=== PATIENT | female | born 1955 | race Caucasian/White ===

== ENCOUNTER 2018-08-02 19:26 | Inpatient (IN) | payer OTHER, MEDICAID ==
[~2018-08-02] VITALS: Ht 157.5 cm; Wt 82.9 kg
[~2018-08-02 19:26] MED LIST: ALEN70TA5 PO; GABA300C10 PO; GLIM1TAB2 PO; GLYBURIDE; LOSA50TA7 PO; MECL25TA4 PO; METF100010 PO; METF500T17 PO; OXYC-302 PO; PRAV10TA2 PO; PRAV40TA2 PO; QUET100T4 PO; QUET50TA5 PO
[2018-08-02] MEDS ORDERED: KETOROLAC 30 MG/1 ML ONE (19:55)
[2018-08-02] MEDS ORDERED: DIAZEPAM 5 MG TABLET ONE (19:56)
[2018-08-02] MEDS ORDERED: KETOROLAC 30 MG/1 ML IM ONE (20:00)
[2018-08-02] MEDS ORDERED: DIAZEPAM 5 MG TABLET PO ONE (20:00)
[2018-08-02 20:13] LABS: BASOPHILS # (AUTO) 0.04 x10^3/uL (0-0.1); BASOPHILS % (AUTO) 0 % (0-1); EOSINOPHILS # (AUTO) 0.09 x10^3/uL (0-0.4); EOSINOPHILS % (AUTO) 1 % (1-7); LYMPHOCYTES # (AUTO) 3.35 x10^3/uL (1-3.4); LYMPHOCYTES % (AUTO) 39 % (22-44); MD NO; MEAN CORPUSCULAR HEMOGLOBIN 31.4 pg (27.0-34.8); MEAN CORPUSCULAR HGB CONC 34.5 g/dL (32.4-35.8); MEAN CORPUSCULAR VOLUME 91.1 fL (80-100); MEAN PLATELET VOLUME 8.5 fL (7.4-10.4); MONOCYTES # (AUTO) 0.65 x10^3/uL (0.2-0.8); MONOCYTES % (AUTO) 8 % (2-9); NEUTROPHILS # (AUTO) 4.44 x10^3/uL (1.8-6.8); NEUTROPHILS % (AUTO) 52 % (42-75); PLATELET COUNT 214 x10^3/uL (130-400); RED BLOOD COUNT 4.31 x10^6/uL (3.82-5.3); RED CELL DISTRIBUTION WIDTH 13.5 % (9.6-15.2)
[2018-08-02 20:22] LABS: ALANINE AMINOTRANSFERASE 63 U/L (12-78); ALBUMIN 3.7 g/dL (3.4-5.0); ANION GAP 4 mmol/L (5-15); CALCIUM 9.2 mg/dL (8.5-10.1); CHLORIDE 103 mmol/L (98-107); CREATININE 0.97 mg/dL (0.55-1.02)
[2018-08-02 20:25] LABS: ALKALINE PHOSPHATASE 149 U/L (45-117); BILIRUBIN,TOTAL 0.4 mg/dL (0.2-1.0); TOTAL PROTEIN 7.8 g/dL (6.4-8.2)
[2018-08-02 20:53] LABS: MICROSCOPIC AUTO
[2018-08-02 20:55] LABS: CULTURE INDICATED? YES
[2018-08-02] MEDS ORDERED: HYDROmorphone 1 MG/ML, 1ML IV ONE (22:00)
[2018-08-02] MEDS ORDERED: HYDROmorphone 2 MG/ML, 1ML ONE (22:00)
[2018-08-02] MEDS ORDERED: NS + 20MEQ KCL 1,000 ML IV SCH (22:08)
[2018-08-02] MEDS ORDERED: ALENDRONATE SODIUM 70 MG PO SCH (22:30)
[2018-08-02] MEDS ORDERED: POLYETHYLENE GLYCOL 17 GM PACKET PO PRN (22:30)
[2018-08-02] MEDS ORDERED: DOCUSATE 100 MG CAPSULE PO PRN (22:30)
[2018-08-02] MEDS ORDERED: ONDANSETRON 2MG/ML, 2ML IVPush PRN (22:30)
[2018-08-02] MEDS ORDERED: ACETAMINOPHEN 325 MG TABLET PO PRN (22:30)
[2018-08-02 22:58] VITALS: BP 145/85
[2018-08-02] MEDS ORDERED: MECLIZINE MC SCH (23:00)
[2018-08-02] MEDS ORDERED: ALENDRONATE MC SCH (23:00)
[2018-08-02] MEDS ORDERED: ONDANSETRON 4 MG TABLET ONE (23:33)
[2018-08-02] MEDS: morphine SULFATE 10 MG/ML, 1ML IVPush PRN (23:38)
[2018-08-02] MEDS: QUETIAPINE 100MG TABLET PO SCH (23:39)
[2018-08-02] MEDS: GABAPENTIN 300 MG CAPSULE PO SCH (23:39)
[2018-08-02] MEDS: DEXAMETHASONE 4 MG TABLET PO SCH (23:39)
[2018-08-03] MEDS: ONDANSETRON ODT 4 MG PO PRN (00:01)
[2018-08-03] MEDS: CEFTRIAXONE PMX 1GM/50ML 50 ML IV SCH ×2 (00:02→23:58)
[2018-08-03 01:38] VITALS: BP 127/64
[2018-08-03] MEDS: morphine SULFATE 10 MG/ML, 1ML IVPush PRN (06:58)
[2018-08-03] MEDS ORDERED: ALENDRONATE 70 MG TABLET PO SCH (09:00)
[2018-08-03] MEDS ORDERED: GLIMEPIRIDE 1 MG TABLET PO SCH (09:00)
[2018-08-03 09:06] VITALS: BP 114/74
[2018-08-03] MEDS: DEXAMETHASONE 4 MG TABLET PO SCH ×3 (09:19→21:20)
[2018-08-03] MEDS: LOSARTAN 50MG TABLET PO SCH (09:19)
[2018-08-03] MEDS: GABAPENTIN 300 MG CAPSULE PO SCH ×2 (09:19→21:19)
[2018-08-03] MEDS: SENNA/DOCUSATE TABLET PO SCH (09:25)
[2018-08-03] MEDS: OXYcodone/APAP 5/325MG TABLET PO PRN ×2 (10:14→19:52)
[2018-08-03] MEDS: INSULIN LISPRO 100 UNITS/ML, PEN SQ-INSULIN SCH ×4 (10:15→21:28)
[2018-08-03] MEDS ORDERED: ERGOCALCIFEROL 50,000 UNIT CAPSULE PO SCH (14:00)
[2018-08-03 15:21] VITALS: BP 123/79
[2018-08-03] MEDS: KETOROLAC 30 MG/1 ML IVPush SCH ×2 (15:34→23:10)
[2018-08-03 18:45] VITALS: BP 133/80
[2018-08-03] MEDS ORDERED: MECLIZINE CHEWABLE 25 MG TAB PO PRN (19:00)
[2018-08-03] MEDS: QUETIAPINE 100MG TABLET PO SCH (21:19)
[2018-08-04 01:41] VITALS: BP 134/81
[2018-08-04] MEDS: OXYcodone/APAP 5/325MG TABLET PO PRN ×2 (02:03→20:26)
[2018-08-04] MEDS: KETOROLAC 30 MG/1 ML IVPush SCH ×4 (04:46→22:56)
[2018-08-04] MEDS: DEXAMETHASONE 4 MG TABLET PO SCH ×4 (05:36→20:32)
[2018-08-04 07:10] VITALS: BP_SYST 115; BP_SYST 143; BP_DIAS 71
[2018-08-04] MEDS: GABAPENTIN 300 MG CAPSULE PO SCH ×2 (08:01→20:26)
[2018-08-04] MEDS: LOSARTAN 50MG TABLET PO SCH (08:01)
[2018-08-04] MEDS: SENNA/DOCUSATE TABLET PO SCH (08:01)
[2018-08-04] MEDS: INSULIN LISPRO 100 UNITS/ML, PEN SQ-INSULIN SCH ×4 (08:01→20:32)
[2018-08-04] MEDS: METHOCARBAMOL 500 MG TABLET PO PRN (08:05)
[2018-08-04 14:30] VITALS: BP 111/73
[2018-08-04 19:55] VITALS: BP 133/80
[2018-08-04] MEDS: QUETIAPINE 100MG TABLET PO SCH (20:26)
[2018-08-04] MEDS ORDERED: CEFTRIAXONE 1,000 MG in SODIUM CHLORIDE 0.9% 50 ML IV SCH (23:00)
[2018-08-05 01:54] VITALS: BP 119/73
[2018-08-05] MEDS: KETOROLAC 30 MG/1 ML IVPush SCH ×2 (05:00→09:51)
[2018-08-05] MEDS: DEXAMETHASONE 4 MG TABLET PO SCH (05:01)
[2018-08-05 07:29] VITALS: BP 142/85
[2018-08-05 07:38] LABS: MEAN CORPUSCULAR HEMOGLOBIN 30.8 pg (27.0-34.8); MEAN CORPUSCULAR HGB CONC 33.3 g/dL (32.4-35.8); MEAN CORPUSCULAR VOLUME 92.4 fL (80-100); MEAN PLATELET VOLUME 8.9 fL (7.4-10.4); PLATELET COUNT 227 x10^3/uL (130-400); RED BLOOD COUNT 4.28 x10^6/uL (3.82-5.3); RED CELL DISTRIBUTION WIDTH 13.5 % (9.6-15.2)
[2018-08-05 07:46] LABS: ALBUMIN 3.3 g/dL (3.4-5.0); ANION GAP 6 mmol/L (5-15); CALCIUM 8.4 mg/dL (8.5-10.1); CHLORIDE 107 mmol/L (98-107)
[2018-08-05 07:52] LABS: ALANINE AMINOTRANSFERASE 41 U/L (12-78); ALKALINE PHOSPHATASE 94 U/L (45-117); BILIRUBIN,TOTAL 0.7 mg/dL (0.2-1.0)
[2018-08-05] MEDS: GABAPENTIN 300 MG CAPSULE PO SCH (08:04)
[2018-08-05] MEDS: LOSARTAN 50MG TABLET PO SCH (08:04)
[2018-08-05] MEDS: METHOCARBAMOL 500 MG TABLET PO PRN (08:04)
[2018-08-05] MEDS: SENNA/DOCUSATE TABLET PO SCH (08:04)
[2018-08-05] MEDS: INSULIN LISPRO 100 UNITS/ML, PEN SQ-INSULIN SCH ×2 (08:05→11:47)
[2018-08-05 08:41] LABS: MD YES
[2018-08-05 08:43] LABS: <PLATELET ESTIMATE> ADEQUATE; <PLT MORPHOLOGY> NORMAL PLT MORPH; <RBC MORPHOLOGY> NORMAL; BAND#(MANUAL) 0.21 x10^3/uL; BANDS%(MANUAL) 1 % (0-7); LYMPH#(MANUAL) 2.29 x10^3/uL (1-3.4); LYMPHS% (MANUAL) 11 % (22-44); MONOS#(MANUAL) 0.83 x10^3/uL (0.3-2.7); MONOS% (MANUAL) 4 % (2-9); SEG#(MANUAL) 17.47 x10^3/uL (1.8-6.8); SEGS% (MANUAL) 84 % (42-75)
[2018-08-05] MEDS ORDERED: DEXAMETHASONE 4 MG TABLET PO SCH (09:00)
[2018-08-05] MEDS ORDERED: DEXA4TAB PO (09:40)
[2018-08-05] MEDS ORDERED: METH500T7 PO (09:40)
[2018-08-05] MEDS ORDERED: ERGO500017 PO (09:40)
[2018-08-05] MEDS: ONDANSETRON ODT 4 MG PO PRN (11:46)
== END 2018-08-05 14:35 | disposition home or self-care (01) | DRG 552 ==
LOC: ED 21:17 → SUATTDRO 21:45 → EDIP 22:37 → 3NW 22:38 → DCLOUNGE 08-05 14:24
PROVIDERS: ADMIT Family Medicine; ATTEND Family Medicine
DX: M51.36 Other intervertebral disc degeneration, lumbar region (principal); N39.0 Urinary tract infection, site not specified; M51.24 Other intervertebral disc displacement, thoracic region; M51.26 Other intervertebral disc displacement, lumbar region; Z85.3 Personal history of malignant neoplasm of breast; M46.1 Sacroiliitis, not elsewhere classified; I10 Essential (primary) hypertension; F41.9 Anxiety disorder, unspecified; E78.00 Pure hypercholesterolemia, unspecified; E55.9 Vitamin D deficiency, unspecified; E11.9 Type 2 diabetes mellitus without complications; T38.0X5A Adverse effect of glucocorticoids and synthetic analogues, initial encounter; Z83.3 Family history of diabetes mellitus; Z80.9 Family history of malignant neoplasm, unspecified
CPT/HCPCS: 36415; 72072; 72110; 72146; 72148; 80053; 81001; 82306; 82962; 85025; 87086; 87491; 87591; 93005; 96372; 96374; G0378; J0696; J1170; J1885; J3480; Q0162; J1815; J2270

== ENCOUNTER 2018-08-15 14:47 | Emergency (ER) | payer OTHER, MEDICAID ==
[~2018-08-15] VITALS: Ht 160 cm; Wt 77.3 kg
[~2018-08-15 14:47] MED LIST changes: +DEXA4TAB PO; +ERGO500017 PO; +METH500T7 PO
[2018-08-15] MEDS ORDERED: SODIUM CHLORIDE FLUSH 10ML SYR IVF ONE (15:00)
[2018-08-15 15:11] LABS: BASOPHILS # (AUTO) 0.03 x10^3/uL (0-0.1); BASOPHILS % (AUTO) 0 % (0-1); EOSINOPHILS # (AUTO) 0.04 x10^3/uL (0-0.4); EOSINOPHILS % (AUTO) 0 % (1-7); LYMPHOCYTES # (AUTO) 2.48 x10^3/uL (1-3.4); LYMPHOCYTES % (AUTO) 18 % (22-44); MD NO; MEAN CORPUSCULAR HGB CONC 34.1 g/dL (32.4-35.8); MEAN CORPUSCULAR VOLUME 90.8 fL (80-100); MEAN PLATELET VOLUME 7.7 fL (7.4-10.4); MONOCYTES # (AUTO) 0.66 x10^3/uL (0.2-0.8); MONOCYTES % (AUTO) 5 % (2-9); NEUTROPHILS # (AUTO) 10.39 x10^3/uL (1.8-6.8); NEUTROPHILS % (AUTO) 76 % (42-75); PLATELET COUNT 239 x10^3/uL (130-400); RED BLOOD COUNT 4.91 x10^6/uL (3.82-5.3); RED CELL DISTRIBUTION WIDTH 13.1 % (9.6-15.2)
[2018-08-15 15:27] LABS: ALANINE AMINOTRANSFERASE 90 U/L (12-78); ALBUMIN 3.6 g/dL (3.4-5.0); ANION GAP 5 mmol/L (5-15); CALCIUM 8.7 mg/dL (8.5-10.1); CHLORIDE 101 mmol/L (98-107); CREATININE 0.86 mg/dL (0.55-1.02)
[2018-08-15 15:29] LABS: ALKALINE PHOSPHATASE 113 U/L (45-117); BILIRUBIN,TOTAL 1.3 mg/dL (0.2-1.0); TOTAL PROTEIN 7.7 g/dL (6.4-8.2)
[2018-08-15] MEDS ORDERED: ACETAMINOPHEN 500 MG TABLET ONE (18:04)
[2018-08-15 18:26] LABS: CULTURE INDICATED? YES; MICROSCOPIC INDICATED
[2018-08-15] MEDS ORDERED: ACETAMINOPHEN 500 MG TABLET PO ONE (18:30)
[2018-08-15] MEDS ORDERED: OMNIPAQUE 350 MG/ML, 100ML BOTTLE ONE (18:40)
[2018-08-15 19:51] VITALS: BP 141/69
== END 2018-08-15 20:12 | disposition home or self-care (01) ==
LOC: ED 20:06
DX: K29.00 Acute gastritis without bleeding (principal); I10 Essential (primary) hypertension; E11.9 Type 2 diabetes mellitus without complications
CPT/HCPCS: 36415; 74021; 74177; 80053; 81001; 83690; 85025; 87086; 99285; Q9967

== ENCOUNTER 2020-10-30 12:11 | Emergency (ER) | payer MEDICAID, OTHER ==
[~2020-10-30] VITALS: Ht 157.5 cm; Wt 79.7 kg
[~2020-10-30 12:11] MED LIST changes: -ALEN70TA5 PO; +ALEN70TA66 PO; -GLIM1TAB2 PO; +GLIM1TAB7 PO; +LOSA50TA14 PO; -LOSA50TA7 PO; +MECL-101 PO; -MECL25TA4 PO
[2020-10-30 12:46] VITALS: BP 176/98
--- NOTE | 2020-10-30 13:51 | NUR ---
MARINE MACHINIST: PT TO ROOM FROM [facility]
--- NOTE | 2020-10-30 14:25 | NUR ---
BREAK RN: PT REPORTS SHE FELL ON WEDNESDAY AND IS NOW HAVING PAIN UNDER RIGHT BREAST. PT ALSO HAS SEVERAL ABRASIONS TO RIGHT HAND. VS STABLE. NO ACUTE DISTRESS NOTED. CALL LIGHT IN PLACE. WILL CONTINUE TO MONITOR.
[2020-10-30] MEDS ORDERED: HYDROmorphone 2 MG/ML, 1ML IM PRN (14:30)
[2020-10-30] MEDS ORDERED: HYDROmorphone 1 MG/ML, 1ML INJ ONE (14:41)
--- NOTE | 2020-10-30 15:01 | NUR ---
REPORT GIVEN TO PADMINI REEVES
[2020-10-30 15:17] LABS: BASOPHILS % (AUTO) 1 % (0-1); EOSINOPHILS % (AUTO) 1 % (1-7); LYMPHOCYTES % (AUTO) 36 % (22-44); MEAN CORPUSCULAR HEMOGLOBIN 30.1 pg (27.0-34.8); MEAN CORPUSCULAR HGB CONC 33.7 g/dL (32.4-35.8); MEAN PLATELET VOLUME 8.1 fL (7.4-10.4); MONOCYTES % (AUTO) 7 % (2-9); NEUTROPHILS % (AUTO) 56 % (42-75); PLATELET COUNT 270 x10^3/uL (130-400); RED BLOOD COUNT 4.81 x10^6/uL (3.82-5.3); RED CELL DISTRIBUTION WIDTH 13.9 % (9.6-15.2)
[2020-10-30 15:18] LABS: MD NO
[2020-10-30 15:21] LABS: ALBUMIN 4.4 g/dL (3.4-5.0); ANION GAP 7 mmol/L (5-15); CALCIUM 9.7 mg/dL (8.5-10.1); CHLORIDE 107 mmol/L (98-107); CREATININE 0.82 mg/dL (0.55-1.02)
[2020-10-30 16:10] LABS: MICROSCOPIC INDICATED
== END 2020-10-30 16:44 | disposition home or self-care (01) ==
LOC: ED 13:58
DX: S20.211A Contusion of right front wall of thorax, initial encounter (principal); I10 Essential (primary) hypertension; E11.9 Type 2 diabetes mellitus without complications; Z85.3 Personal history of malignant neoplasm of breast; W18.30XA Fall on same level, unspecified, initial encounter; Y93.89 Activity, other specified; Y92.009 Unspecified place in unspecified non-institutional (private) residence as the place of occurrence of the external cause; Y99.8 Other external cause status
CPT/HCPCS: 36415; 71046; 80048; 81001; 82040; 85025; 96372; 99284; J1170

== ENCOUNTER 2021-04-29 08:45 | Emergency (ER) | payer OTHER ==
[~2021-04-29] VITALS: Ht 157.5 cm; Wt 78.0 kg
[~2021-04-29 08:45] MED LIST changes: -ALEN70TA66 PO; +ALEN70TA77 PO; +METH-639 PO; -METH500T7 PO; -OXYC-302 PO; +OXYC1TAB14 PO
--- NOTE | 2021-04-29 09:45 | NUR ---
structural layout worker: pt from lobby to room [id number]
--- NOTE | 2021-04-29 10:19 | NUR ---
PROVIDER IN ROOM AT BEDSIDE. PT TO COLLECT URINE.
[2021-04-29] MEDS ORDERED: ONDANSETRON 2MG/ML, 2ML ONE (10:27)
[2021-04-29] MEDS ORDERED: METHOCARBAMOL 750 MG TABLET ONE (10:27)
[2021-04-29] MEDS ORDERED: KETOROLAC 30 MG/1 ML ONE (10:27)
[2021-04-29] MEDS ORDERED: ONDANSETRON 2MG/ML, 2ML IVPush ONE (10:30)
[2021-04-29] MEDS ORDERED: KETOROLAC 30 MG/1 ML IVPush ONE (10:30)
[2021-04-29] MEDS ORDERED: METHOCARBAMOL 750 MG TABLET PO ONE (10:30)
[2021-04-29] MEDS ORDERED: SODIUM CHLORIDE FLUSH 10ML SYR IVF ONE (10:30)
--- NOTE | 2021-04-29 10:30 | NUR ---
PT STATES HAS HAD LEFT FLANK PAIN AND LOWER BACK SINCE TK AND BURNING SENSATION WHEN URINATING, AND FEEL BILATERAL LEG PAIN. PAIN 9/10 ON LOWER BACK.
[2021-04-29 11:16] LABS: BASOPHILS % (AUTO) 1 % (0-1); EOSINOPHILS % (AUTO) 1 % (1-7); LYMPHOCYTES % (AUTO) 31 % (22-44); MEAN CORPUSCULAR HEMOGLOBIN 30.8 pg (27.0-34.8); MEAN CORPUSCULAR HGB CONC 34.3 g/dL (32.4-35.8); MEAN PLATELET VOLUME 8.4 fL (7.4-10.4); MONOCYTES % (AUTO) 7 % (2-9); NEUTROPHILS % (AUTO) 61 % (42-75); PLATELET COUNT 251 x10^3/uL (130-400); RED BLOOD COUNT 4.75 x10^6/uL (3.82-5.3); RED CELL DISTRIBUTION WIDTH 14.3 % (9.6-15.2)
[2021-04-29 11:17] LABS: MICROSCOPIC INDICATED
[2021-04-29 11:19] LABS: MD NO
[2021-04-29 11:22] LABS: ALBUMIN 4.1 g/dL (3.4-5.0); ANION GAP 4 mmol/L (5-15); CALCIUM 9.4 mg/dL (8.5-10.1); CHLORIDE 109 mmol/L (98-107); CREATININE 0.76 mg/dL (0.55-1.02)
--- NOTE | 2021-04-29 11:36 | NUR ---
PT TO RADIOLOGY FOR XRAYS.
[2021-04-29 12:57] VITALS: BP 129/80
--- NOTE | 2021-04-29 13:05 | NUR ---
Patient given discharge instructions and they have confirmed that they understand the instructions. Patient ambulatory with steady gait. No questions at time of discharge.
== END 2021-04-29 13:07 | disposition home or self-care (01) ==
LOC: ED 10:29
DX: N30.00 Acute cystitis without hematuria (principal); M54.16 Radiculopathy, lumbar region; E78.00 Pure hypercholesterolemia, unspecified; E11.9 Type 2 diabetes mellitus without complications
CPT/HCPCS: 36415; 72110; 74176; 80048; 81001; 82040; 85025; 87086; 96374; 96375; 99285; J1885; J2405